=== PATIENT | male | born 1980 | race Caucasian/White ===

== ENCOUNTER 2020-02-17 21:10 | Inpatient (IN) | payer OTHER, SELFPAY ==
--- NOTE | ~2020-02-17 | XR_ITS ---
EXAMINATION: XR chest 1V portable DATE: 02/18/2020 05:48 INDICATION: Intubation. TECHNIQUE: A single frontal view of the chest was obtained. COMPARISON: Chest single view at 12:14 AM, chest 2 views 04/28/2018, CT abdomen and pelvis 01/16/2018 FINDINGS: The patient is rotated to his left. There are airspace opacities at left lung base. A calci fied right lung nodule is consistent with old granulomatous disease. No pleural effusion or pneumotho rax. The heart size is normal. The endotracheal tube tip is 3.7 cm above the steve. The nasogastric tube tip is beyond the inferior margin of the radiograph, but at least to the stomach. There are old healed left rib fractures. IMPRESSION: 1. Worsened airspace opacities at left lung base, consistent with atelectasis versus pneumonia. Reviewed, dictated and finalized at location A. IMPRESSION: 1. Worsened airspace opacities at left lung base, consistent with atelectasis v ersus pneumonia.
--- NOTE | ~2020-02-17 | XR_ITS ---
EXAMINATION: XR chest 1V portable DATE: 02/20/2020 05:51 INDICATION: Shortness of breath. TECHNIQUE: A single frontal view of the chest was obtained. COMPARISON: Chest single view 02/18/2020, CT abdomen and pelvis 01/16/2018 FINDINGS: Calcified pulmonary nodules are consistent with old granulomatous disease. There are mild a irspace opacities in the lower lung zones. No pleural effusion or pneumothorax. The heart size is nor mal. There is an old healed left rib fracture. IMPRESSION: 1. Mild airspace opacities in the lower lung zones with improvement on the left, likely atelectasis. Reviewed, dictated and finalized at location A. IMPRESSION: 1. Mild airspace opacities in the lower lung zones with improvement on the left , likely atelectasis.
--- NOTE | ~2020-02-17 | XR_ITS ---
EXAMINATION: XR abdomen NG/feed tube insert DATE: 02/18/2020 01:10 INDICATION: Orogastric tube placement. TECHNIQUE: A supine view of the abdomen on 2 radiographs was obtained. COMPARISON: CT abdomen and pelvis 01/16/2018 FINDINGS: There are no dilated loops of bowel. There is a moderate volume of stool in the colon. The nasogastric tube tip is at the gastroesophageal junction. There are airspace opacities at left lung b ase. A calcified left lung nodule is consistent with old granulomatous disease. IMPRESSION: 1. Nasogastric tube tip at the gastroesophageal junction. The tube has since been advanced. 2. Airspace opacities at left lung base, consistent with atelectasis versus pneumonia. Reviewed, dictated and finalized at location A. IMPRESSION: 1. Nasogastric tube tip at the gastroesophageal junction. The tube has since be en advanced. 2. Airspace opacities at left lung base, consistent with atelectasis versus pne umonia.
--- NOTE | ~2020-02-17 | XR_ITS ---
EXAMINATION: XR chest ET placement DATE: 02/18/2020 00:20 INDICATION: Intubation. TECHNIQUE: A single frontal view of the chest was obtained on 2 radiographs. COMPARISON: Chest 2 views 04/28/2018 FINDINGS: The patient is rotated to his left. Calcified bilateral lung nodules are consistent with ol d granulomatous disease. There are airspace opacities in left perihilar region. No pleural effusion o r pneumothorax. The heart size is normal. The endotracheal tube tip is 2.2 cm above the steve. IMPRESSION: 1. Airspace opacities in left perihilar region, consistent with atelectasis versus pneumonia. Follow- up imaging is recommended to exclude malignancy. Reviewed, dictated and finalized at location A. IMPRESSION: 1. Airspace opacities in left perihilar region, consistent with atelectasis kanu deja pneumonia. Follow-up imaging is recommended to exclude malignancy.
[2020-02-17 21:14] VITALS: BP 121/85; PULSE 90; RESP 20; TEMP 37.3; O2SAT 94
[2020-02-17 21:19] VITALS: RESP 20
--- NOTE | 2020-02-17 21:20 | PC.NURSE ---
CALLED POISON CONTROL. PT TOOK APPROX 60 UNKNOWN MG OF ZIPRASIDONE. PEAK IN 6 HOURS. HALF LIFE APPROX THE SAME. SPOKE WITH BUZZ Kuo PHARMACIST AT [facility].
[2020-02-17 21:54] LABS: Basophils Percent Auto 0.4 % (0.2-1.2); Eosinophils Absolute Auto 0.2 K/mm3 (0-0.3); Eosinophils Percent Auto 2.2 % (0-4.4); Hemoglobin 14.2 g/dL (14.0-18.0); Immature Granulocyte Absolute 0.03 K/mm3 (0.00-0.031); Immature Granulocyte Percent A 0.4 % (0-0.5); Lymphocytes Absolute Auto 2.84 K/mm3 (0.9-3.2); Lymphocytes Percent Auto 41.9 % (18.3-44.2); Mean Corpuscular Hemoglobin 30.7 pg (26-34); Mean Corpuscular Volume 93.1 fl (80-100); Mean Platelet Volume 9.4 fl (7.4-10.4); Monocytes Absolute Auto 0.4 K/mm3 (0.1-0.6); Monocytes Percent Auto 6.2 % (2.6-8.5); Neutrophils Absolute Auto 3.3 K/mm3 (1.3-6.7); Neutrophils Percent Auto 48.9 % (45.5-73.1); Platelet Count Result 255 k/mm3 (150-375); Red Blood Count 4.62 M/mm3 (4.6-6.20); Red Cell Distribution Width 14.4 % (11.5-14.5); White Blood Count 6.8 K/mm3 (4.5-10.0)
--- NOTE | 2020-02-17 21:55 | ECG_ITS ---
Measurements Intervals [place] Rate: 97 P: 35 VT: 151 QRS: 16 QRSD: 100 T: 47 QT: 322 QTc: 410 Interpretive Statements SINUS RHYTHM ST ELEVATION IN DIFFUSE LEADS- PROBABLY EARLY REPOLARIZATION BORDERLINE ECG Electronically Signed On 02-18-2020 7:21:57 CDT by Mauro Vasques D.O.
[2020-02-17 21:57] LABS: Add Urine Microscopic? NO; Appearance Urine Clear (Clear); Bilirubin Urine Negative (Negative); Blood Urine Negative (Negative); Color Urine Straw (Yellow); Glucose Urine UA Negative (Negative); Ketones Urine Negative (Negative); Leukocyte Esterase Ur Negative LEU/UL (Negative); Nitrate Urine Negative (Negative); Protein Urine Negative (Negative); Specific Grav Ur 1.011 (1.001-1.035); Urobilinogen Urine Negative mg/dL (<2.0)
[2020-02-17 22:05] LABS: Alanine Aminotransferase 18 U/L (4-50); Albumin Level 3.9 g/dL (3.5-5.1); Alkaline Phosphatase 85 U/L (38-126); Aspartate Amino Transferase 39 U/L (17-59); Bilirubin,Total 0.2 mg/dL (0.2-1.3); Blood Urea Nitrogen 11 mg/dL (9-20); Calcium 8.7 mg/dL (8.4-10.2); Carbon Dioxide 25 mmol/L (22-30); Chloride 106 mmol/L (98-107); Estimated CRCL calculation 108 ml/min; Estimated Glomerular Filt Rate > 60; Glucose 87 mg/dL (75-110); Potassium 3.8 mmol/L (3.4-5.0); Sodium 138 mmol/L (137-145)
[2020-02-17 22:06] LABS: Ethanol 49 mg/dL (<10)
[2020-02-17 22:12] LABS: Amphetamine Screen Urine Negative (Negative); Barbiturate Screen Urine Negative (Negative); Benzodiazepines Screen Urine Negative (Negative); Cannabinoid Screen Urine Positive (Negative); Cocaine Screen Urine Negative (Negative); Methadone Screen Urine Negative (Negative); Opiate Screen Urine Negative (Negative); Phencyclidine Screen Urine Negative (Negative)
[2020-02-17 22:29] VITALS: BP 117/74; PULSE 101; RESP 14; O2SAT 93
[2020-02-17 23:12] VITALS: BP 115/67; PULSE 82; RESP 16; O2SAT 99
--- NOTE | 2020-02-17 23:50 | PC.NURSE ---
Per ED patient sitter, sitter states patient began to vomit and choke on own vomit. Sitter moved patient to side and cleared airway. EDP [facility] notified.
--- NOTE | 2020-02-17 23:51 | ED.PSYCH ---
HPI - Psych General Chief Complaint: Psychiatric Symptoms Stated Complaint: si/od Time Seen by Provider: 02/17/20 23:45 Source: EMS and RN notes reviewed Mode of arrival: EMS Limitations: clinical condition History of Present Illness HPI Narrative: This patient is a 39 year old male with history of schizophrenia, bipolar who presents via EMS for evaluation of suicidal ideations. EMS reported to staff patient took 60 pills of GEodon prior to arrival in an attempt to kill himself. On arrival nursing staff reports patient was alert and oriented with mild slurred speech. 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 Patient is now asleep so unable to given any history. MD complaint: suicidal ideation Related Data Home Medications Medication Instructions Recorded Confirmed carbamazepine 200 mg PO TID 02/18/20 02/18/20 clonidine 1 patch TRANSDERMAL WEEKLY 02/18/20 02/18/20 levothyroxine 50 mcg PO QAM 02/18/20 02/18/20 ziprasidone HCl 60 mg PO BID 02/18/20 02/18/20 Allergies Allergy/AdvReac Type Severity Reaction Status Date / Time haloperidol Allergy Unknown Unknown Verified 02/17/20 21:36 Review of Systems Review of Systems: ROS unobtainable: Yes unobtainable due to medical condition PMFSH Past Medical History Medical History (Updated 02/18/20 @ 08:09 by Nori Huber MD) Bipolar disorder with psychotic features Hypothyroidism Multiple substance abuse Schizophrenia Surgical History Surgical History (Updated 02/18/20 @ 04:09 by Krissy Cook DO) H/O inguinal hernia repair Family History Family History Other Unknown family medical history Social History Social History (Updated 02/18/20 @ 04:20 by Krissy Cook DO) Smoking status: Current every day smoker Additional smoking assessment comments: According to old records the patient has smoked 1-2 packs cigarettes/day Alcohol intake: current Alcohol use details: Old records mention that the patient has a history of binge drinking. Substance use: current Substance use type: marijuana and methamphetamine Gender identity (if verbalized by the patient): Male Spiritual care concerns: No Exam Const: Other: patient snoring respirations, unresponsive with emesis on bed HENMT: Head: normocephalic and atraumatic Face and sinus: face symmetric Mouth: Yes moist mucous membranes Eyes: Cornea: corneas normal Pupils: Pinpoint pupils Chest: Chest palpation & inspection: normal inspection of the chest Resp: Effort & Inspection: normal respiratory effort Auscultation: clear to auscultation bilaterally Cardio: Rate: regular rate Rhythm: regular rhythm Heart sounds: no murmurs Skin: General skin exam: normal color Rashes: no rashes Extrem: General: no pedal edema Course Reevaluation(s) Reevaluation #1: Per tech patient started vomiting 5 minutes ago and he was gargling so he laid him on his side. Patient is sleeping but unable to arouse so intubated to protected airway. Date: 02/18/20 Time: 00:04 Vital Signs Vital signs: Vital Signs Temperature 99.2 F 02/17/20 21:14 Pulse Rate 90 02/17/20 21:14 Respiratory Rate 20 02/17/20 21:14 Blood Pressure 121/85 02/17/20 21:14 Pulse Oximetry 94 02/17/20 21:14 Temperature 97.8 F 02/18/20 04:00 Pulse Rate 72 02/18/20 06:00 Respiratory Rate 20 02/18/20 06:00 Blood Pressure 106/69 02/18/20 06:00 Pulse Oximetry 99 02/18/20 06:00 Procedures Intubation Intubation #1: Intubation Date: 02/18/20 Intubation Time: 00:05 sedative: Etomidate Mg Given: 20 paralytic: Succinylcholine Mg Given: 100 Laryngoscope: fiber optic video scope Tube Size (cm): 8.0 Method of Intubation: orotracheal Number of Attempts: 1 Tube Secured Depth (cm): 26 Tube Secured Location:
[2020-02-18] VITALS (33 sets, daily range): BP systolic 86–134; BP diastolic 52–95; PULSE 51–110; RESP 10–25; TEMP 36.2–37.3; O2SAT 91–100; BMI 26.7
--- NOTE | 2020-02-18 00:02 | PC.NURSE ---
KEILY huber in room for intubation Per KEILY Huber verbal order read-back, patient given 20mg Etomidate IVP and 100mg Succinycholine IVP 0004 - good color change and rise and fall of chest. 26 at the lip Size 8 ETT Patient 100%
--- NOTE | 2020-02-18 00:21 | PC.NURSE ---
Per EDP Huber verbal order read-back, give patient 2mg Versed and 50mg Rocuronium IVP.
--- NOTE | 2020-02-18 00:22 | PC.NURSE ---
Per KEILY Huber, begin patient on Propofol drip and give 1000mL NS bolus.
[2020-02-18] MEDS: PROPOFOL IV EMULSION 100 ML 2.3 MG (00:24)
[2020-02-18] MEDS: SODIUM CHLORIDE 0.9% IV 1,000 ML 999 ML (00:25)
[2020-02-18 00:30] LABS: Alveolar/Arterial O2 Gradient 345.2 mmHg; Base Excess ABG -1.5 mEq/l (+/-2.0); Device VENTILATOR; Fractional Inspired Oxygen 100 %; HCO3 ABG 25.2 mEq/l (22.0-26.0); Modified Allen's Test Pass; Oxygen Content ABG 19.7 %vol (16.0-22.0); Oxygen Saturation ABG 99.7 % (95.0-100.0); Oxyhemoglobin 92.8 % THb (90.0-100.0); PCO2 ABG 49.8 mmHg (35.0-45.0); PO2 FiO2 Ratio Arterial Blood 3.18 %; Site Drawn RIGHT RADIAL; Total Hemoglobin 14.5 g/dL (12.0-18.0); pH ABG 7.322 (7.350-7.450)
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
[2020-02-18 00:31] LABS: Arterial Blood Gas Vent Mode CMV; Arterial Blood Gas Ventilator rate 16 /MIN
[2020-02-18 00:32] LABS: Arterial Blood Gas PEEP 5 cmH2O; Arterial Blood Gas Tidal Volume 400 ml
[2020-02-18 01:08] LABS: Acetaminophen < 10 ug/mL (10-30); Salicylate < 1.0 mg/dL (2-20)
[2020-02-18] MEDS: LACTATED RINGERS 1,000 ML 125 ML IV CONT (02:04)
[2020-02-18] MEDS: LACTATED RINGERS 1,000 ML 999 ML IV CONT (02:20)
[2020-02-18 04:11] LABS: Alveolar/Arterial O2 Gradient 194.8 mmHg; Base Excess ABG -1.9 mEq/l (+/-2.0); Carboxyhemoglobin 1.6 % THb (0-2.0); Device VENTILATOR; Fractional Inspired Oxygen 55 %; HCO3 ABG 23.3 mEq/l (22.0-26.0); Methemoglobin ABG 0.4 %THb (0-1.5); Modified Allen's Test Unable to perform; Oxygen Content ABG 19.1 %vol (16.0-22.0); Oxygen Saturation ABG 98.9 % (95.0-100.0); Oxyhemoglobin 96.4 % THb (90.0-100.0); PCO2 ABG 41.4 mmHg (35.0-45.0); PO2 ABG 151.3 mmHg (80.0-100.0); PO2 FiO2 Ratio Arterial Blood 2.75 %; Reduced Hemoglobin 1.6 %THb (0-5.0); Site Drawn RIGHT RADIAL; Total Hemoglobin 13.9 g/dL (12.0-18.0); pH ABG 7.368 (7.350-7.450)
[2020-02-18 04:12] LABS: Arterial Blood Gas PEEP 5 cmH2O; Arterial Blood Gas Tidal Volume 400 ml; Arterial Blood Gas Vent Mode CMV; Arterial Blood Gas Ventilator rate 20 /MIN
[2020-02-18] MEDS: SODIUM CHLORIDE 0.9% IV 1,000 ML 125 ML IV CONT ×3 (05:24→15:54)
[2020-02-18] MEDS: AMPICILLIN SODIUM/SULBACTAM 3 GM in SODIUM CHLORIDE 0.9% IV 100 ML IVPB ×4 (05:25→23:01)
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
[2020-02-18] MEDS: FAMOTIDINE 20 MG/2 ML VIAL IV PUSH ×2 (08:54→20:07)
[2020-02-18 10:38] LABS: Hematocrit 40.7 % (42.0-52.0); Hemoglobin 13.2 g/dL (14.0-18.0); Mean Corpuscular HGB Conc 32.4 g/dl (32-36); Mean Corpuscular Hemoglobin 30.8 pg (26-34); Mean Corpuscular Volume 94.9 fl (80-100); Mean Platelet Volume 9.2 fl (7.4-10.4); Platelet Count Result 218 k/mm3 (150-375); Red Blood Count 4.29 M/mm3 (4.6-6.20); Red Cell Distribution Width 14.7 % (11.5-14.5); White Blood Count 9.3 K/mm3 (4.5-10.0)
[2020-02-18 10:49] LABS: Blood Urea Nitrogen 11 mg/dL (9-20); Calcium 7.8 mg/dL (8.4-10.2); Carbon Dioxide 24 mmol/L (22-30); Chloride 108 mmol/L (98-107); Estimated CRCL calculation 124 ml/min; Estimated Glomerular Filt Rate > 60; Glucose 103 mg/dL (75-110); Phosphorus 3.9 mg/dL (2.5-4.5); Potassium 3.7 mmol/L (3.4-5.0); Sodium 138 mmol/L (137-145)
[2020-02-18] MEDS: PROPOFOL IV EMULSION 100 ML 6.8 MG IV CONT (11:08)
--- NOTE | 2020-02-18 11:56 | PC.NURSE ---
MD present in pt room with low blood pressure. Verbal order to bolus 500 ml of NS and recheck blood pressure.
--- NOTE | 2020-02-18 14:47 | PC.NURSE ---
Poison control called for follow up on patient. EKG unable to obtain due to patient noncompliance. Supportive care is to be continued. Vital signs are stable with a low BP that was treated with a 500 ml bolus of normal saline. The case will remain open until the patient has been extubated and is stable.
--- NOTE | 2020-02-18 17:34 | PM.IMPN ---
Progress Note: A&P Assessment and Plan (1) Suicide attempt by drug ingestion: Code(s): T50.902A - Poisoning by unspecified drugs, medicaments and biological substances, intentional self-harm, initial encounter Status: Acute Assessment and Plan: Overdose of geodon. (2) Coffee ground emesis: Code(s): K92.0 - Hematemesis Status: Acute Assessment and Plan: Patient has been placed on Protonix 40 mg IV q.12. (3) Hypothyroidism: Qualifiers: Hypothyroidism type: unspecified Qualified Code(s): E03.9 - Hypothyroidism, unspecified Code(s): E03.9 - Hypothyroidism, unspecified Status: Acute (4) Acute respiratory failure with hypoxemia: Code(s): J96.01 - Acute respiratory failure with hypoxia Status: Acute Assessment and Plan: Patient was intubated for airway protection covered with iv unasyn in case of aspiration. Seen by [facility] attending who is adjusting ventilator. Pt is extubated and havig issues with agitation now. Subjective Date/time seen: 02/18/20 17:34 Interval history: Pt is intubated in icu, admitted early this morning. history 39 year old male with a past medical history of bipolar disorder with psychosis and suicidal ideation who presented to the ER via EMS for evaluation of suicidal ideation. He took between 60 and 90 tablets of Geodon in an attempt to kill himself. And had to be intubated due to loss of consciousness. Extubated later in the day. Saw pt is icu called because pt was agitated. Security in the room. soft restraints ordered Review of Systems Review of Systems: Narrative: Agitation Exam Narrative: Exam Narrative: Pt is agitated in the room. Objective Data Vital Signs Vital Signs: Vital Signs - 24 hr 02/17/20 21:14 02/17/20 21:19 02/17/20 22:29 Temperature 37.3 C Pulse Rate 90 101 H Respiratory Rate 20 20 14 Blood Pressure 121/85 117/74 Pulse Oximetry 94 93 02/17/20 23:12 02/18/20 00:30 02/18/20 00:31 Temperature 36.3 C L Pulse Rate 82 101 H 101 H Respiratory Rate 16 16 Blood Pressure 115/67 100/60 Pulse Oximetry 99 100 98 02/18/20 01:24 02/18/20 01:48 02/18/20 02:00 Temperature Pulse Rate 92 110 H 90 Respiratory Rate 18 23 H Blood Pressure 96/52 L Pulse Oximetry 92 97 02/18/20 02:01 02/18/20 02:15 02/18/20 02:16 Temperature Pulse Rate 84 83 85 Respiratory Rate 16 25 H 22 H Blood Pressure 110/61 86/52 L Pulse Oximetry 96 93 92 02/18/20 02:30 02/18/20 02:31 02/18/20 02:40 Temperature 36.3 C L Pulse Rate 86 84 84 Respiratory Rate 23 H 23 H 22 H Blood Pressure 92/55 L Pulse Oximetry 93 93 95 02/18/20 03:27 02/18/20 03:58 02/18/20 04:00 Temperature 36.6 C Pulse Rate 75 75 74 Respiratory Rate 23 H 22 H Blood Pressure 108/56 L Pulse Oximetry 97 95 96 02/18/20 06:00 02/18/20 08:00 02/18/20 08:45 Temperature 36.4 C L Pulse Rate 72 67 73 Respiratory Rate 20 22 H Blood Pressure 106/69 103/68 Pulse Oximetry 99 100 98 02/18/20 10:00 02/18/20 11:20 02/18/20 11:49 Temperature Pulse Rate 63 63 54 L Respiratory Rate 10 L 10 L 18 Blood Pressure 95/64 L 89/68 L Pulse Oximetry 98 98 98 02/18/20 12:00 02/18/20 13:45 02/18/20 13:59 Temperature Pulse Rate 51 L 61 58 L Respiratory Rate Blood Pressure Pulse Oximetry 95 02/18/20 14:00 02/18/20 14:12 02/18/20 15:58 Temperature Pulse Rate 57 L 64 73 Respiratory Rate 11 L 17 13 Blood Pressure 110/81 Pulse Oximetry 99 91 99 02/18/20 16:00 Temperature Pulse Rate 75 Respiratory Rate 16 Blood Pressure 114/73 Pulse Oximetry 100 Intake/Output Intake/Output: Intake & Output 02/15/20 02/16/20 02/17/20 02/18/20 23:59 23:59 23:59 23:59 Intake Total 4116 Output Total 1220 Balance 2896 Meds/Results Medications: Active Medications Generic Name Dose Route Start Last Admin Trade Name Freq PRN Reason Stop Dose Admin Famotidine 20 mg 0
[2020-02-19] VITALS (19 sets, daily range): BP systolic 104–133; BP diastolic 52–99; PULSE 58–110; RESP 13–23; TEMP 36.4–37.7; O2SAT 96–97
[2020-02-19] MEDS: LORAZEPAM INJ 2 MG/ML VIAL IV PUSH ×4 (00:37→20:33)
[2020-02-19] MEDS: SODIUM CHLORIDE 0.9% IV 1,000 ML 125 ML IV CONT ×2 (00:39→09:35)
[2020-02-19 04:16] LABS: Basophils Percent Auto 0.4 % (0.2-1.2); Eosinophils Percent Auto 0.5 % (0-4.4); Hematocrit 39.3 % (42.0-52.0); Hemoglobin 12.8 g/dL (14.0-18.0); Immature Granulocyte Absolute 0.03 K/mm3 (0.00-0.031); Immature Granulocyte Percent A 0.4 % (0-0.5); Lymphocytes Percent Auto 16.5 % (18.3-44.2); Mean Corpuscular HGB Conc 32.6 g/dl (32-36); Mean Corpuscular Hemoglobin 30.2 pg (26-34); Mean Corpuscular Volume 92.7 fl (80-100); Mean Platelet Volume 9.3 fl (7.4-10.4); Monocytes Absolute Auto 0.5 K/mm3 (0.1-0.6); Monocytes Percent Auto 5.5 % (2.6-8.5); Neutrophils Absolute Auto 6.5 K/mm3 (1.3-6.7); Neutrophils Percent Auto 76.7 % (45.5-73.1); Platelet Count Result 199 k/mm3 (150-375); Red Blood Count 4.24 M/mm3 (4.6-6.20); Red Cell Distribution Width 14.3 % (11.5-14.5); White Blood Count 8.5 K/mm3 (4.5-10.0)
[2020-02-19 04:27] LABS: Alanine Aminotransferase 14 U/L (4-50); Alkaline Phosphatase 78 U/L (38-126); Aspartate Amino Transferase 29 U/L (17-59); Bilirubin,Total 0.6 mg/dL (0.2-1.3); Blood Urea Nitrogen 8 mg/dL (9-20); Calcium 8.1 mg/dL (8.4-10.2); Carbon Dioxide 28 mmol/L (22-30); Chloride 108 mmol/L (98-107); Estimated CRCL calculation 146 ml/min; Estimated Glomerular Filt Rate > 60; Glucose 111 mg/dL (75-110); Potassium 3.8 mmol/L (3.4-5.0); Sodium 137 mmol/L (137-145)
[2020-02-19] MEDS: AMPICILLIN SODIUM/SULBACTAM 3 GM in SODIUM CHLORIDE 0.9% IV 100 ML IVPB ×4 (05:00→23:22)
--- NOTE | 2020-02-19 09:16 | WPDINTPN ---
Progress Note: A&P Assessment and Plan (1) Acute respiratory failure with hypoxemia: Code(s): J96.01 - Acute respiratory failure with hypoxia Status: Acute Assessment and Plan: Intubated on 02/17 primarily for airway protection because of him being very altered and unarousable. He was extubated on 02/17 once his mental status improved. He is requiring 2 L of oxygen through nasal cannula. No respiratory issues. Denied to have any significant cough and shortness of breath. (2) Hypothyroidism: Qualifiers: Hypothyroidism type: unspecified Qualified Code(s): E03.9 - Hypothyroidism, unspecified Code(s): E03.9 - Hypothyroidism, unspecified Status: Acute Assessment and Plan: Noncompliance with the medication regimen. TSH is within normal range. Will resume his levothyroxine today. (3) Suicide attempt by drug ingestion: Code(s): T50.902A - Poisoning by unspecified drugs, medicaments and biological substances, intentional self-harm, initial encounter Status: Acute Assessment and Plan: Crisis team evaluation is pending. He will likely need to be admitted to inpatient psychiatry service once he is medically clear. Will restart his Geodon orally. He has been started on Haldol through IV but that can be stopped if he is able to take his psych medication orally. (4) Aspiration pneumonia: Code(s): J69.0 - Pneumonitis due to inhalation of food and vomit Status: Acute Assessment and Plan: He had an episode of vomiting before intubation while he was still very lethargic and drowsy. He has been started on Unasyn empirically. Repeat chest x-ray in the a.m. and if there is no significant infiltrate or consolidation then will consider to stop antibiotics. Continue to monitor temperature curve and WBC count. Continue to monitor cultures as well. (5) Drug overdose: Code(s): T50.901A - Poisoning by unspecified drugs, medicaments and biological substances, accidental (unintentional), initial encounter Status: Acute Assessment and Plan: Poison control were called from emergency department with no significant recommendation. They have suggested that the peak level will be achieved 7 hours after ingestion and then his mental status will improve. Unclear ingestion time but apparently it was sometime in the afternoon yesterday. He took 60-90 tablets of Geodon with unclear strength. (6) Agitation: Code(s): R45.1 - Restlessness and agitation Status: Acute Assessment and Plan: He is currently on Precedex drip and Ativan as p.r.n.. He required 2 doses of Ativan overnight. Wean Precedex drip as tolerated. (7) Alcohol withdrawal: Code(s): F10.239 - Alcohol dependence with withdrawal, unspecified Status: Acute Assessment and Plan: He does drink on a daily basis. He takes beer with unknown quantity. He denied to have any issues with alcohol withdrawal in the past. Continue Precedex and wean the Precedex if he is able to tolerated. Continue Ativan as p.r.n.. Start thiamine and folate. I will start p.o. Librium in an effort to decrease Precedex requirement. Additional Plan GI prophylaxis. Stop Pepcid. DVT prophylaxis with subcu heparin Full code He has passed bedside swallow. He has been started on p.o. diet. Stop IV fluid. Discontinue Vanessa's if feasible from nursing point of view. He has a history of being very violent and verbally abusive from his prior admission here in the hospital. He has a history of damaging hospital property in the past as well. Hospital security at the bedside. He will be placed on one-to-one for close observation. Crisis team is aware of his admission and will evaluate him after extubation. Critical care time spent on is more than 36 minutes Due to a high probability of clinically significant, life threatening deterioration, the patient required my highes
[2020-02-19] MEDS: carBAMazepine 200 MG TABLET PO ×3 (09:18→17:46)
[2020-02-19] MEDS: LEVOTHYROXINE SODIUM 50 MCG TABLET PO (09:18)
--- NOTE | 2020-02-19 11:16 | PCDIET ---
Nutrition Follow-Up Complete: Nutrition Diagnosis: Inadequate oral intake related to oral intubation as evidenced by NPO status. Nutrition Goal: Patient to meet estimated nutritional needs. Goal in progress. Patient extubated and ate 100% of breakfast on regular diet which is appropriate. Last recorded weight is 75.1 kg. Bowel Motility: No documented BM as of yet. Labs Reviewed: Glu (111), BUN (8), Cr (0.5), Alb (3.0), Rachel Ca (8.9) Meds Noted: Ampicillin, Precedex, NS at 75mL/hr Additional Notes: No documented skin breakdown. Will continue to monitor with same goal. Nutrition Monitoring and Evaluation: Follow up every 5 days.
[2020-02-19] MEDS: ziprasidone HCL 20 MG CAPSULE 60 MG PO ×2 (11:29→19:57)
--- NOTE | 2020-02-19 12:14 | PC.NURSE ---
pt requested several times to call his father David at [phone]. Called the number at [phone], no answer.
[2020-02-19] MEDS: CHLORDIAZEPOXIDE 25 MG CAPSULE PO ×2 (13:41→20:33)
--- NOTE | 2020-02-19 17:08 | PM.IMPN ---
Progress Note: A&P Assessment and Plan (1) Suicide attempt by drug ingestion: Code(s): T50.902A - Poisoning by unspecified drugs, medicaments and biological substances, intentional self-harm, initial encounter Status: Acute Assessment and Plan: Overdose of geodon.once medically stable will consult crisis team (2) Coffee ground emesis: Code(s): K92.0 - Hematemesis Status: Acute Assessment and Plan: Patient has been placed on Protonix 40 mg IV q.12. (3) Hypothyroidism: Qualifiers: Hypothyroidism type: unspecified Qualified Code(s): E03.9 - Hypothyroidism, unspecified Code(s): E03.9 - Hypothyroidism, unspecified Status: Acute (4) Acute respiratory failure with hypoxemia: Code(s): J96.01 - Acute respiratory failure with hypoxia Status: Acute Assessment and Plan: Patient was intubated for airway protection covered with iv unasyn in case of aspiration. Seen by I[facility] attending who is adjusting ventilator. Pt is extubated and having issues with agitation yesterday now on precedex (5) Alcohol withdrawal: Code(s): F10.239 - Alcohol dependence with withdrawal, unspecified Status: Acute Assessment and Plan: Pt having issues with agitation yesterday now on precedex and restarted on geodon Subjective Date/time seen: 02/19/20 17:08 Interval history: Pt is intubated in icu, admitted early this morning. history 39 year old male with a past medical history of bipolar disorder with psychosis and suicidal ideation who presented to the ER via EMS for evaluation of suicidal ideation. He took between 60 and 90 tablets of Geodon in an attempt to kill himself. And had to be intubated due to loss of consciousness. Extubated later in the day. Saw pt is icu called because pt was agitated. Pt is on precedex and restarted on geodon by ICU. Crisis team once medically cleared Review of Systems Review of Systems: All systems reviewed & are unremarkable except as noted in HPI and below Constitutional: Comments: agitation complains of rib pain Cardiovascular: Cardiovascular: Denies dyspnea on exertion Respiratory: Respiratory: Denies cough and Denies wheezing Exam Const: General: tired appearing and other Objective Data Vital Signs Vital Signs: Vital Signs - 24 hr 02/18/20 18:00 02/18/20 20:00 02/18/20 21:04 Temperature 36.2 C L Pulse Rate 79 66 65 Respiratory Rate 17 17 18 Blood Pressure 134/95 H 125/86 122/72 Pulse Oximetry 96 93 92 02/18/20 22:00 02/18/20 23:40 02/19/20 00:00 Temperature 36.4 C L Pulse Rate 64 63 58 L Respiratory Rate 21 H 18 14 Blood Pressure 118/80 125/91 H Pulse Oximetry 93 95 96 02/19/20 02:00 02/19/20 03:46 02/19/20 04:00 Temperature 36.6 C Pulse Rate 63 63 60 Respiratory Rate 13 13 13 Blood Pressure 133/99 H 130/84 Pulse Oximetry 96 96 96 02/19/20 06:00 02/19/20 08:00 02/19/20 09:48 Temperature 36.4 C L Pulse Rate 60 67 Respiratory Rate 13 15 Blood Pressure 129/88 121/81 Pulse Oximetry 97 97 97 02/19/20 10:00 02/19/20 12:00 Temperature 36.4 C Pulse Rate 69 88 Respiratory Rate 16 19 Blood Pressure 125/86 106/69 Pulse Oximetry 97 96 Intake/Output Intake/Output: Intake & Output 02/16/20 02/17/20 02/18/20 02/19/20 23:59 23:59 23:59 23:59 Intake Total 4316 4980 Output Total 1220 1100 Balance 3096 3880 Meds/Results Medications: Active Medications Generic Name Dose Route Start Last Admin Trade Name Freq PRN Reason Stop Dose Admin Carbamazepine 200 mg 02/19/20 09:00 02/19/20 13:41 Tegretol PO 200 mg TID [facility] Administration Chlordiazepoxide HCl 25 mg 02/19/20 14:00 02/19/20 13:41 Librium Po PO 25 mg Q8HR [facility] Administration Clonidine HCl 1 patch 02/19/20 09:00 Clonidine 0.2 Mg/24 Hr TRANSDERM WEEKLY [facility] Folic Acid 1 mg 02/20/20 09:00 Folic Acid PO DAILY [facility] Ampicillin Sodium/Sulbactam 10
[2020-02-19] MEDS: SODIUM CHLORIDE 0.9% IV 1,000 ML 75 ML IV CONT (17:39)
--- NOTE | 2020-02-19 20:24 | PC.NURSE ---
02/19/201944 While in room doing assessment pt shows Nurse his penis and asks if it is big enough, states he cant have kids but keeps trying. Asking personal questions of nurse. Nurse states she will not talk about personal matters.
--- NOTE | 2020-02-19 20:26 | PC.NURSE ---
02/19/202014 Pt calls on light and then starts shouting he wants to smell the nurses wet pussy .
--- NOTE | 2020-02-19 20:48 | PC.NURSE ---
02/19/202024 informed pt that he is saying things that are inappropriate. Pt states he knows he is inappropriate, and then asks for a shower stating I smell like wet pussy .
[2020-02-19] MEDS: NICOTINE (*PBKC) 21 MG PATCH 1 PATCH TRANSDERM (21:17)
--- NOTE | 2020-02-19 23:51 | PC.NURSE ---
In patients room to administer pain medicine. Patient states pain is a 10/10 and sits up in bed. Explaining to patient that I am also going to run an antibiotic through the patients IV. Turn around to pharmacy picking technician IV and when turned back around pt is saying, yeah, through the IV and he placed IV he has just pulled out onto the bedside table. Upon further inspection patient has also pulled Vanessa out of stat lock. Restraints replaced to protect IV and Vanessa catheter.
[2020-02-20] VITALS (13 sets, daily range): BP systolic 102–156; BP diastolic 68–92; PULSE 68–103; RESP 15–24; TEMP 36.4–36.8; O2SAT 94–98
[2020-02-20] MEDS: LORAZEPAM INJ 2 MG/ML VIAL IV PUSH ×2 (01:00→05:00)
[2020-02-20] MEDS: SODIUM CHLORIDE 0.9% IV 1,000 ML 75 ML IV CONT (02:57)
[2020-02-20 04:33] LABS: Alveolar/Arterial O2 Gradient 36.8 mmHg; Base Excess ABG 2.6 mEq/l (+/-2.0); Carboxyhemoglobin 0.3 % THb (0-2.0); Device ROOM AIR; Fractional Inspired Oxygen 21 %; HCO3 ABG 26.9 mEq/l (22.0-26.0); Methemoglobin ABG 0.3 %THb (0-1.5); Modified Allen's Test Pass; Oxygen Content ABG 16.5 %vol (16.0-22.0); Oxygen Saturation ABG 93.3 % (95.0-100.0); Oxyhemoglobin 92.4 % THb (90.0-100.0); PCO2 ABG 40.6 mmHg (35.0-45.0); PO2 ABG 64.3 mmHg (80.0-100.0); PO2 FiO2 Ratio Arterial Blood 3.06 %; Site Drawn LEFT RADIAL; Total Hemoglobin 12.7 g/dL (12.0-18.0); pH ABG 7.439 (7.350-7.450)
[2020-02-20] MEDS: CHLORDIAZEPOXIDE 25 MG CAPSULE PO ×2 (05:00→08:43)
[2020-02-20] MEDS: AMPICILLIN SODIUM/SULBACTAM 3 GM in SODIUM CHLORIDE 0.9% IV 100 ML IVPB ×2 (05:01→13:50)
[2020-02-20] MEDS: LEVOTHYROXINE SODIUM 50 MCG TABLET PO (05:02)
[2020-02-20 05:35] LABS: Hematocrit 37.2 % (42.0-52.0); Mean Corpuscular HGB Conc 32.3 g/dl (32-36); Mean Corpuscular Hemoglobin 30.8 pg (26-34); Mean Corpuscular Volume 95.4 fl (80-100); Mean Platelet Volume 9.8 fl (7.4-10.4); Platelet Count Result 194 k/mm3 (150-375); Red Cell Distribution Width 14.6 % (11.5-14.5); White Blood Count 6.2 K/mm3 (4.5-10.0)
--- NOTE | 2020-02-20 05:47 | PC.NURSE ---
Pt requests to go to a care home upon discharge and is also requesting xanax because he still feels restless after receiving ativan IV.
[2020-02-20 05:49] LABS: Blood Urea Nitrogen 5 mg/dL (9-20); Calcium 7.9 mg/dL (8.4-10.2); Carbon Dioxide 30 mmol/L (22-30); Chloride 107 mmol/L (98-107); Estimated CRCL calculation 124 ml/min; Estimated Glomerular Filt Rate > 60; Glucose 87 mg/dL (75-110); Magnesium 1.8 mg/dL (1.6-2.3); Potassium 3.3 mmol/L (3.4-5.0); Sodium 138 mmol/L (137-145)
[2020-02-20] MEDS: ziprasidone HCL 20 MG CAPSULE 60 MG PO (08:43)
[2020-02-20] MEDS: FOLIC ACID 1 MG TABLET PO (08:44)
[2020-02-20] MEDS: carBAMazepine 200 MG TABLET PO ×2 (08:44→13:50)
--- NOTE | 2020-02-20 08:51 | WPDINTPN ---
Progress Note: A&P Assessment and Plan (1) Acute respiratory failure with hypoxemia: Code(s): J96.01 - Acute respiratory failure with hypoxia Status: Acute Assessment and Plan: Intubated on 02/17 primarily for airway protection because of him being very altered and unarousable. He was extubated on 02/17 once his mental status improved. He is currently on room air. No respiratory issues. Denied to have any significant cough and shortness of breath. (2) Hypothyroidism: Qualifiers: Hypothyroidism type: unspecified Qualified Code(s): E03.9 - Hypothyroidism, unspecified Code(s): E03.9 - Hypothyroidism, unspecified Status: Acute Assessment and Plan: Noncompliance with the medication regimen. TSH is within normal range. Continue levothyroxine. (3) Suicide attempt by drug ingestion: Code(s): T50.902A - Poisoning by unspecified drugs, medicaments and biological substances, intentional self-harm, initial encounter Status: Acute Assessment and Plan: Crisis team evaluation is pending. He will likely need to be admitted to inpatient psychiatry service once he is medically clear. Continue Geodon at his home dose. (4) Aspiration pneumonia: Code(s): J69.0 - Pneumonitis due to inhalation of food and vomit Status: Acute Assessment and Plan: He had an episode of vomiting before intubation while he was still very lethargic and drowsy. He has been started on Unasyn empirically. Chest x-ray which was repeated today showed bilateral basal airspace disease. He will need 3 more days of p.o. levofloxacin at the time of discharge likely today. He is on room air and denied to have any respiratory symptoms. He did not have any signs and symptoms suggestive of COVID-19 and he was not tested during his stay here in the hospital because of no suspicion. Continue to monitor temperature curve and WBC count. Continue to monitor cultures as well. (5) Drug overdose: Code(s): T50.901A - Poisoning by unspecified drugs, medicaments and biological substances, accidental (unintentional), initial encounter Status: Acute Assessment and Plan: Poison control were called from emergency department with no significant recommendation. They have suggested that the peak level will be achieved 7 hours after ingestion and then his mental status will improve. Unclear ingestion time but apparently it was sometime in the afternoon yesterday. He took 60-90 tablets of Geodon with unclear strength. (6) Agitation: Code(s): R45.1 - Restlessness and agitation Status: Acute Assessment and Plan: He has weaned off from Precedex drip. He is off restrained and seems much less agitated now. Dose of Librium has been increased to 50 mg 3 times a day which can be weaned off over the next 5-7 days depending upon his symptoms controlled. Continue Xanax at his home dose of 0.5 mg twice a day. (7) Alcohol withdrawal: Code(s): F10.239 - Alcohol dependence with withdrawal, unspecified Status: Acute Assessment and Plan: He does drink on a daily basis. He takes beer with unknown quantity. He denied to have any issues with alcohol withdrawal in the past. He is off Precedex drip now. He is off restraints as well. Continue thiamine and folate. Continue Librium with 50 mg 3 times a day and wean off over the next 5-7 days depending upon how he tolerated. Additional Plan GI prophylaxis. Not indicated DVT prophylaxis with subcu heparin Full code He has passed bedside swallow. He has been started on p.o. diet. Stop IV fluid. Discontinue Vanessa's if feasible from nursing point of view. He has a history of being very violent and verbally abusive from his prior admission here in the hospital. He has a history of damaging hospital property in the past as well. Hospital security at the bedside. He will be placed on one-to-one for close
[2020-02-20] MEDS: ALPRAZOLAM 0.5 MG TABLET PO ×3 (09:09→16:05)
[2020-02-20] MEDS: POTASSIUM CHLORIDE 20 MEQ PACKET (FOR LIQUID) 40 MEQ PO (10:45)
--- NOTE | 2020-02-20 11:09 | PC.NURSE ---
Called poison control at [phone] regarding case # [id number] and spoke w/Sana MCCAIN who said the patient is cleared from their standpoint.
[2020-02-20] MEDS: CHLORDIAZEPOXIDE 25 MG CAPSULE 50 MG PO (13:48)
[2020-02-20] MEDS: THIAMINE HCL 100 MG TABLET PO (13:50)
--- NOTE | 2020-02-20 15:26 | PM.DS ---
DS: Admitting Diagnosis Admitting Diagnosis Admitting Diagnosis: Poisoning by unspecified drugs, medicaments and biological substances, intentional self-harm, initial encounter DS: Discharge Diagnosis Discharge Diagnosis (1) Suicide attempt by drug ingestion: Code(s): T50.902A - Poisoning by unspecified drugs, medicaments and biological substances, intentional self-harm, initial encounter Status: Acute Assessment and Plan: Overdose of geodon.Pt is medically stable to dischrage to [facility]. History of schizophrenia talking about blowing his brains out, still suicidal. police were called for bad behaviour (2) Coffee ground emesis: Code(s): K92.0 - Hematemesis Status: Acute Assessment and Plan: Patient has been placed on Protonix 40 mg IV q.12 while in the hospital (3) Hypothyroidism: Qualifiers: Hypothyroidism type: unspecified Qualified Code(s): E03.9 - Hypothyroidism, unspecified Code(s): E03.9 - Hypothyroidism, unspecified Status: Acute (4) Acute respiratory failure with hypoxemia: Code(s): J96.01 - Acute respiratory failure with hypoxia Status: Acute Assessment and Plan: Patient was intubated for airway protection covered with iv unasyn in case of aspiration. Seen by I[facility] attending who is adjusting ventilator. Pt was extubated and having issues with agitation yesterday was on precedex now is off it. (5) Alcohol withdrawal: Code(s): F10.239 - Alcohol dependence with withdrawal, unspecified Status: Acute Assessment and Plan: Pt having issues with agitation yesterday was on precedex and restarted on librium thiamine and folate (6) Hypertension: Code(s): I10 - Essential (primary) hypertension Status: Acute Assessment and Plan: Pt to continue on hydralazine prn orally and his clonidine patch for high Bps DS: Summary Time Spent with Patient Time attestation: Total time spent providing and/or coordinating discharge services:40 minutes on day of dischrage Exam Narrative: Exam Narrative: Pt is heavily guarded, adviced not to go to near to him DS: Data Data Completed and Pending Labs on day of discharge: Labs from last 24 hours 02/20/20 02/20/20 02/20/20 05:06 05:06 04:19 WBC 6.2 RBC 3.90 L Hgb 12.0 L Hct 37.2 L MCV 95.4 MCH 30.8 MCHC 32.3 RDW 14.6 H Plt Count 194 MPV 9.8 Puncture Site Left radial ABG pH 7.439 ABG pCO2 40.6 ABG pO2 64.3 L ABG PO2/FiO2 Ratio 3.06 ABG HCO3 26.9 H ABG O2 Saturation 93.3 L ABG O2 Content 16.5 ABG Base Excess 2.6 A-a Gradient 36.8 Oxyhemoglobin 92.4 Carboxyhemoglobin 0.3 Methemoglobin 0.3 Reduced Hemoglobin 7.0 H Total Hemoglobin 12.7 O2 Delivery Device Room air O2 Liters/Min Not Reportable FiO2 21 Sodium 138 Potassium 3.3 L Chloride 107 Carbon Dioxide 30 BUN 5 L Creatinine 0.60 L Estim Creat Clear Calc 124 Estimated GFR > 60 Glucose 87 Calcium 7.9 L Magnesium 1.8 Discharge Plan Discharge Attending physician on discharge: Lelo Patrick Consulting providers: Richard Jay Jr. ; Gretchen Weaver Discharging Clinician: Lelo Patrick Anticipated Discharge Date/Time: 02/20/20 15:22 Patient Disposition: Other Activity: as tolerated Diet: heart healthy Discharge Instructions: DISCHARGE TO [facility] IN[facility] Patient Instructions: Antibiotic Form Stand Alone Forms: General Discharge Information Discharge Medications: New chlordiazepoxide HCl 25 mg Capsule 50 mg PO Q8HR Qty: 30 RF: 0 folic acid 1 mg Tablet 1 mg PO DAILY Qty: 30 RF: 0 potassium chloride 20 mEq Packet 40 meq PO Q6HR Qty: 5 RF: 0 hydralazine 10 mg Tablet 10 mg PO QID Qty: 30 RF: 0 thiamine HCl (vitamin B1) [Vitamin B-1] 100 mg Tablet 100 mg PO QAM Qt
[2020-02-20] MEDS: CLONIDINE 0.2 MG/24 HR PATCH 1 PATCH TRANSDERM (15:29)
[2020-02-20] MEDS: hydrALAZINE 10 MG TABLET PO (15:30)
[2020-02-20] MEDS: NICOTINE (*PBKC) 21 MG PATCH 1 PATCH TRANSDERM (16:32)
--- NOTE | 2020-02-20 18:56 | PC.NURSE ---
This patient, Bj Peters, was transferred to [address] on 02/20/20 at 1854 via [facility] with Maria Luisa DUNCAN at bedside. Personal belongings sent with patient. Report given to ADÁN Vega. Appropriate documentation faxed.
== END 2020-02-20 18:55 | DRG 817 ==
LOC: ANHED 02-18 00:23 → ANHICU 02-18 09:56
PROVIDERS: Internal Medicine Critical Care Medicine; Admitting Provider Internal Medicine; Emergency Provider General Practice; PCP Psychiatry & Neurology Child & Adolescent Psychiatry; Visit Provider Family Medicine
DX: T43.592A Poisoning by other antipsychotics and neuroleptics, intentional self-harm, initial encounter (principal); J69.0 Pneumonitis due to inhalation of food and vomit; K92.0 Hematemesis; F10.239 Alcohol dependence with withdrawal, unspecified; I10 Essential (primary) hypertension; F20.9 Schizophrenia, unspecified; F31.89 Other bipolar disorder; R45.1 Restlessness and agitation; E03.9 Hypothyroidism, unspecified; F17.210 Nicotine dependence, cigarettes, uncomplicated; R45.851 Suicidal ideations; Z91.14 Patient's other noncompliance with medication regimen
CPT/HCPCS: 31500; 36415; 36600; 71045; 80048; 80053; 80307; 81003; 82375; 82805; 83050; 83735; 84100; 84443; 85025; 85027; 87086; 87088; 93005; 94002; 96365; 96366; 99291; A9270; J0295; J2060; J2704; J7030; J7120